=== PATIENT | female | born 1990 | race Caucasian/White ===

== ENCOUNTER 2019-02-20 13:52 | Emergency (ER) | payer OTHER ==
[~2019-02-20] VITALS: Ht 170.2 cm; Wt 79.4 kg
--- NOTE | 2019-02-20 14:34 | ED Lower Extremity ---
General Chief Complaint: Lower Extremity Stated Complaint: LT FOOT INJ History of Present Illness Date Seen by Provider: Feb 20, 2019 Time Seen by Provider: 14:05 Initial Comments The patient is a very pleasant 28-year-old female who presents for evaluation of a left foot injury. 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 He felt immediate severe pain and developed significant swelling and came to the emergency department. She is unable to walk due to the pain. She denies any other injuries and did not fall and did not lose consciousness. She is alert and oriented 4, calm, and appears to be in no distress. Onset: just prior to arrival Severity: moderate Pain/Injury Location: left foot Method of Injury: direct blow Modifying Factors: Improves With Cold Therapy (helps), Improves With Movement (worsens) Allergies and Home Medications Allergies Coded Allergies: Sulfa (Sulfonamide Antibiotics) (Verified Allergy, Unknown, 02/20/19) Patient Home Medication List Home Medication List Reviewed: Yes Review of Systems Constitutional: no symptoms reported EENTM: no symptoms reported Respiratory: no symptoms reported Cardiovascular: no symptoms reported Gastrointestinal: no symptoms reported Genitourinary: no symptoms reported : No Musculoskeletal: joint pain (left foot pain/swelling), joint swelling Skin: no symptoms reported Psychiatric/Neurological: No Symptoms Reported All Other Systems Reviewed Negative Unless Noted: Yes Past Vtxunms-Fwkqti-Lmdsii Hx Past Med/Social Hx: Reviewed Nursing Past Med/Soc Hx, Reviewed and Corrections made Physical Exam Vital Signs Capillary Refill : Height, Weight, BMI Height: '" Weight: lbs. oz. kg; BMI Method: General Appearance: WD/WN, no apparent distress HEENT: PERRL/EOMI, normal ENT inspection, pharynx normal Neck: non-tender, full range of motion, normal inspection Cardiovascular: regular rate, rhythm Respiratory: chest non-tender, normal breath sounds, no respiratory distress Ankles: bilateral ankle non-tender Feet: right foot non-tender, right foot normal inspection, right foot normal range of motion, right foot no evidence of injury; left foot bone tenderness, left foot ecchymosis, left foot limited range of motion, left foot pain, left foot soft tissue tenderness, left foot swelling Neurologic/Tendon: normal sensation, normal motor functions, normal tendon functions, responds to pain 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, no motor/sensory deficits, alert, normal mood/affect, oriented x 3 Skin: normal color, warm/dry Progress/Results/Core Measures Results/Orders My Orders Orders - KENAN BATES DO Foot 3 View Left (02/20/19 14:13) Ice: Apply To Affected Area (02/20/19 14:13) Ibuprofen Tablet (Motrin Tablet) (02/20/19 15:00) Diagnostic Imaging Diagonstic Imaging: Xray Plain Films/CT/US/NM/MRI: other (foot) Comments [facility], [place] NAME: CONCHA GUTIERREZ [facility] REC#: [id number] PT STATUS: REG ER : 1990 PHYSICIAN: KENAN BATES DO ADMIT DATE: 02/20/19/ER FS Draft Date of Exam:02/20/19 FOOT 3 VIEW LEFT INDICATION: Left foot pain, stomped by a horse. TIME OF EXAM: 2:01 p.m. FINDINGS: Three views of the left foot were obtained. Metatarsals are intact. Phalanges are intact. Midfoot and hindfoot are unremarkable apart from a small plantar calcaneal spur. No fractures are seen. There is significant soft tissue swelling along the dorsum of the foot. IMPRESSION: Dorsal soft tissue swelling. No acute bony abnormality is detected. Dictated on workstation # [id number] Dict: 02/20/19 1444 Trans: 02/20/19 1455 [id number] Interpreted by: SANA PAVON MD Electronically signed by: Departure Impression Primary Impression: Contusion of left foot, initial encounter Disposition: 01 HOME, SELF-CARE Condition: Stable Departure-Patient Inst. Decision time for Depature: 15:05 Referrals: NO,LOCAL PHYSICIAN (PCP/Family) Primary Care Physician Patient Instructions: Contusion (DC) Add. Discharge Instructions: The prescribed medicine as directed. Return to the ER for new or worsening symptoms. Follow up with your doctor the next 2-3 days. Use the crutches and Christopher wrap provided as directed. Scripts Tramadol HCl (Tramadol HCl) 50 Mg Tablet 50 MG PO Q6H PRN for PAIN-MODERATE TO SEVERE for 3 Days, #15 TAB 0 Refills Prov: KENAN BATES DO 02/20/19 KENAN BATES DO Feb 20, 2019 14:34
--- NOTE | 2019-02-20 14:56 | Diagnostic Imaging Report ---
INDICATION: Left foot pain, stomped by a horse. TIME OF EXAM: 2:01 p.m. FINDINGS: Three views of the left foot were obtained. Metatarsals are intact. Phalanges are intact. Midfoot and hindfoot are unremarkable apart from a small plantar calcaneal spur. No fractures are seen. There is significant soft tissue swelling along the dorsum of the foot. IMPRESSION: Dorsal soft tissue swelling. No acute bony abnormality is detected. Dictated by: Dictated on workstation # [id number]
[2019-02-20] MEDS ORDERED: IBUPROFEN 600 MG (MOTRIN) TAB PO ONE (15:00)
[2019-02-20] MEDS ORDERED: TRAM50TA2 PO (15:07)
[2019-02-20 15:35] VITALS: BP 106/55
--- OUTSIDE RECORDS SUMMARY | 2019-02-20 17:18 | XMS REPORT | Continuity of Care Document ---
Author Organization Unknown Address Unknown Allergies There is no data. Medications There is no data. Problems There is no data. Procedures There is no data. Results Test Result Range TSH w/ FREE T4 - 01/14/19 16:04 TSH 1.80 mIU/L NRG T4, FREE 1.1 ng/dL 0.8-1.8 CBC w/MANUAL DIFF - 01/14/19 16:04 WHITE BLOOD CELL COUNT 6.4 Thousand/uL 3.8-10.8 RED BLOOD CELL COUNT 4.22 Million/uL 3.80-5.10 HEMOGLOBIN 12.6 g/dL 11.7-15.5 HEMATOCRIT 36.6 % 35.0-45.0 MCV 86.7 fL 80.0-100.0 MCH 29.9 pg 27.0-33.0 MCHC 34.4 g/dL 32.0-36.0 RDW 13.1 % 11.0-15.0 PLATELET COUNT 238 Thousand/uL 140-400 MPV 9.6 fL 7.5-12.5 ABSOLUTE NEUTROPHILS 3866 cells/uL 1411-3698 ABSOLUTE MONOCYTES 128 cells/uL 200-950 ABSOLUTE EOSINOPHILS 0 cells/uL 15-500 ABSOLUTE BASOPHILS 64 cells/uL 0-200 NEUTROPHILS 60.4 % NRG LYMPHOCYTES 36.6 % NRG MONOCYTES 2.0 % NRG EOSINOPHILS 0 % NRG BASOPHILS 1.0 % NRG ABSOLUTE LYMPHOCYTES 2342 cells/uL 850-3900 PLATELET ESTIMATION ADEQUATE ADEQUATE COMMENT(S) NRG Encounters ACCT No. Visit Date/Time Discharge Status Pt. Type Provider Facility Loc./Unit Complaint [id number] 02/11/2019 16:00:00 02/11/2019 23:59:59 [facility] Outpatient SID ALCARAZ [facility] [id number] 01/14/2019 15:40:00 Document Registration
== END 2019-02-20 15:31 | disposition home or self-care (01) ==
LOC: ER FS 13:54
DX: S90.32XA Contusion of left foot, initial encounter (principal); Z88.2 Allergy status to sulfonamides; W55.19XA Other contact with horse, initial encounter
CPT/HCPCS: 73630